=== PATIENT | female | born 1980 | race Two or more races ===

== ENCOUNTER 2021-11-15 07:02 | Day surgery (SDC) | payer OTHER ==
[~2021-11-15] VITALS: Ht 177.8 cm; Wt 77.1 kg
== END 2021-11-15 18:45 | disposition home or self-care (01) ==
LOC: CIR.AMB 07:02
PROVIDERS: ATTEND Obstetrics & Gynecology
DX: N84.0 Polyp of corpus uteri (principal); Z20.822 Contact with and (suspected) exposure to COVID-19; Z88.0 Allergy status to penicillin; I10 Essential (primary) hypertension; Z86.16 Personal history of COVID-19; G43.909 Migraine, unspecified, not intractable, without status migrainosus